=== PATIENT | female | born 1995 | race Caucasian/White ===

== ENCOUNTER 2022-01-21 01:11 | Emergency (ER) | payer OTHER ==
[~2022-01-21] VITALS: Ht 165.1 cm; Wt 75.3 kg
[2022-01-21 01:23] VITALS: BP 142/85
--- NOTE | 2022-01-21 01:23 | NUR ---
Patient discharged with v/s stable. Written and verbal after care instructions given and explained. Patient verbalized understanding. Ambulatory with steady gait. All questions addressed prior to discharge. Advised to follow up with PMD.
[2022-01-21] MEDS ORDERED: KETOROLAC 60 MG/2 ML VIAL IM ONE (01:35)
[2022-01-21 02:20] VITALS: BP 142/85
== END 2022-01-21 02:20 | disposition home or self-care (01) ==
LOC: MED 01:11
DX: R07.89 Other chest pain (principal); R05.9 Cough, unspecified
CPT/HCPCS: 71045; 81025; 93005; 96372; 99283; J1885